=== PATIENT | male | born 1975 | race Two or more races ===

== ENCOUNTER 2022-09-09 13:39 | Emergency (ER) | payer SELFPAY ==
[2022-09-09] MEDS ORDERED: Morphine 4 MG/ML Syringe IVPUSH ONE (15:59)
[2022-09-09] MEDS ORDERED: Ondansetron 4 MG/2 ML SDV IVPUSH ONE (15:59)
[2022-09-09] MEDS ORDERED: Sodium Chloride 0.9% 1,000 ML IV ONE (16:15)
[2022-09-09] MEDS ORDERED: Ketorolac 30 MG/ML SDV IVPUSH ONE (16:52)
[2022-09-09 17:03] LABS: CARBON DIOXIDE,CO2 25.2 mmol/L (21.0-32.0)
[2022-09-09] MEDS ORDERED: Potassium Chloride 20 MEQ Tab.ER PO ONE (17:26)
[2022-09-09] MEDS ORDERED: Cefepime 2 GM in Premix Bag 1 BAG IV ONE (17:32)
[2022-09-09] MEDS ORDERED: Iopamidol 755 MG/ML 500 ML Multipack Bottle IVPUSH STA (17:37)
[2022-09-09 18:17] LABS: CORONAVIRUS COVID-19 NAA NEGATIVE (NEGATIVE); INFLUENZA A NAA POSITIVE (NEGATIVE); INFLUENZA B NAA NEGATIVE (NEGATIVE)
[2022-09-09] MEDS ORDERED: HYDROmorphone 1 MG/ML Syringe IVPUSH ONE (18:24)
== END 2022-09-09 18:56 | disposition home or self-care (01) ==
LOC: MW.ED 13:39
DX: J10.1 Influenza due to other identified influenza virus with other respiratory manifestations (principal); Z79.899 Other long term (current) drug therapy; Z20.822 Contact with and (suspected) exposure to COVID-19
CPT/HCPCS: 0240U; 36415; 71046; 71275; 80053; 83605; 83735; 84484; 85025; 86140; 87040; 93005; 96361; 96365; 96375; 99285; A9270; J0692; J1170; J1885; J2270; J2405; J7030; Q9967; 93010; 99284